=== PATIENT | female | born 1955 | race Caucasian/White ===

== ENCOUNTER 2017-08-09 07:55 | Day surgery (SDC) | payer BC ==
[~2017-08-09] VITALS: Ht 177.8 cm; Wt 81.6 kg
[~2017-08-09 07:55] MED LIST: ESTR1PAT40 TD; LEVO112T4 PO
[2017-08-09] MEDS ORDERED: LACTATED RINGERS 1,000 ML IV SCH (08:28)
[2017-08-09 08:30] VITALS: BP 120/77
[2017-08-09] MEDS ORDERED: LIDOCAINE 1%, 2ML SQ PRN (08:30)
[2017-08-09] MEDS ORDERED: LIDOCAINE-MPF 2% ,5ML ONE (11:09)
[2017-08-09] MEDS ORDERED: DEXAMETHASONE 4 MG/ML, 5ML ONE (11:09)
[2017-08-09] MEDS ORDERED: ROCURONIUM 10 MG/ML ONE (11:09)
[2017-08-09] MEDS ORDERED: PROPOFOL 10 MG/ML, 20ML ONE (11:09)
[2017-08-09] MEDS ORDERED: ONDANSETRON 2MG/ML, 2ML ONE (11:09)
[2017-08-09] MEDS ORDERED: SUCCINYLCHOLINE 20 MG/ML, 10ML ONE (11:09)
[2017-08-09] MEDS ORDERED: CEFAZOLIN 1,000 MG ONE (11:09)
[2017-08-09] MEDS ORDERED: ONDANSETRON 2MG/ML, 2ML IVPush PRN (11:30)
[2017-08-09] MEDS ORDERED: LORazepam 2 MG/ML, 1ML IVPush PRN (11:30)
[2017-08-09] MEDS ORDERED: MIDAZOLAM 1 MG/ML, 2ML IV PRN (11:30)
[2017-08-09] MEDS ORDERED: hydrALAzine 20 MG/ML, 1ML IV PRN (11:30)
[2017-08-09] MEDS ORDERED: LABETALOL 5MG/ML, 20ML IV PRN (11:30)
[2017-08-09] MEDS ORDERED: ACETAMINOPHEN 325 MG TABLET PO PRN (11:30)
[2017-08-09] MEDS ORDERED: FENTANYL PF 100 MCG/2ML IV PRN (11:30)
[2017-08-09] MEDS ORDERED: PROMETHAZINE 25 MG/ML, 1ML IV PRN (11:30)
[2017-08-09] MEDS ORDERED: MEPERIDINE/PF 25MG/0.5ML IVPush PRN (11:30)
[2017-08-09] MEDS ORDERED: OXYcodone 5 MG/5 ML ORAL.SOL UDC PO PRN (11:30)
[2017-08-09] MEDS ORDERED: HYDROmorphone 1 MG/ML, 1ML IV PRN (11:30)
[2017-08-09] MEDS ORDERED: ACETAMINOPHEN 650 MG/20.3 ML UDC ONE (12:10)
[2017-08-09] MEDS ORDERED: OXYcodone 5 MG/5 ML ORAL.SOL UDC ONE (12:10)
[2017-08-09] MEDS ORDERED: FENTANYL PF 100 MCG/2ML ONE (12:10)
== END 2017-08-09 14:30 ==
LOC: OUT 07:55
PROVIDERS: ATTEND Urology
DX: N20.1 Calculus of ureter (principal); Z88.5 Allergy status to narcotic agent
CPT/HCPCS: 52356; 74000; 76001; 82360; 88300; 93005; C1758; C2617; J0330; J0690; J1100; J2405; J2704; J3010; J3490; J7120